=== PATIENT | female | born 1985 | race Caucasian/White ===

== ENCOUNTER 2018-07-02 15:55 | Outpatient (REF) | payer BC, SELFPAY ==
--- NOTE | 2018-07-02 11:15 | PAPFT_PTH ---
PATIENT: Mariely Rizvi LOC: [facility] U#:[id number] AGE/SX: 33/F ROOM: RE07/02/[address]: Isa Cervantes NP : 1985 BED: DIS: 07/02/2018 SPEC #: [id number] RECD: 07/02/18 18:02 STATUS: MELI PACE #: [id number] NORIS: 07/02/18 11:[address]: Isa Cervantes NP DEPT: [facility] Cytology RECD BY: Karoline Oakes Tissues: 1 - CX/ENDOCX FOR PAP SMEARS Procedures: PAP THIN PREP/UVM Screening HPV DNA PROBE Comments: [id number]
== END 2018-07-02 16:15 ==
LOC: LBN 15:55
PROVIDERS: PCP Nurse Practitioner Family; Visit Provider Nurse Practitioner Women's Health
DX: Z12.4 Encounter for screening for malignant neoplasm of cervix (principal); Z11.51 Encounter for screening for human papillomavirus (HPV); Z01.419 Encounter for gynecological examination (general) (routine) without abnormal findings
CPT/HCPCS: 88142; 87624

== ENCOUNTER 2018-12-29 02:27 | Outpatient (CLI) | payer BC, SELFPAY ==
--- NOTE | 2018-12-29 09:30 | PFT_ITS ---
PULMONARY FUNCTION TEST REPORT DATE OF SERVICE: December 29, 2018 REQUESTING PROVIDER: Gislee Rosales M.D. Spirometry shows no evidence of obstructive airways disease. No bronchodilator testing was carried out. Lung volumes show no evidence of restriction. Diffusion capacity elevated. Airways resistance normal. IMPRESSION: Isolated, markedly elevated diffusion capacity. This constellation of finding can be seen in asthma; therefore if the diagnosis of asthma is in question, proceeding with methacholine challenge testing may prove to be useful. Clinical correlation therefore recommended. TATO/andrew
== END 2018-12-29 02:47 ==
PROVIDERS: PCP Nurse Practitioner Family; Visit Provider Nurse Practitioner Family
DX: R05 Cough (principal)
CPT/HCPCS: 94150; 94726; 94729; 94010

== ENCOUNTER 2019-03-17 18:08 | Outpatient (REF) | payer BC, SELFPAY | END 2019-03-17 18:28 | LOC: LBN 18:08 | PROVIDERS: PCP Nurse Practitioner Family; Visit Provider Nurse Practitioner Women's Health | DX: R30.0 Dysuria (principal) | CPT/HCPCS: 87086 ==

== ENCOUNTER 2019-04-07 13:01 | Outpatient (REF) | payer BC, SELFPAY | END 2019-04-07 13:21 | LOC: LBN 13:01 | PROVIDERS: PCP Nurse Practitioner Family; Visit Provider Nurse Practitioner Family | DX: R30.0 Dysuria (principal) | CPT/HCPCS: 87086 ==

== ENCOUNTER 2020-08-16 02:44 | Outpatient (CLI) | payer BC, SELFPAY ==
[2020-08-16 13:04] LABS: ALT 27 U/L (14-59); AST 27 U/L (15-37); Albumin 3.8 g/dL (3.4-5.0); Alkaline Phosphatase 59 U/L (46-116); Anion Gap 9.1 mmol/L (3-11); BUN 11 mg/dL (7-18); Bilirubin, Total 0.3 mg/dL (0.2-1.0); CO2 26.9 mmol/L (21.0-32.0); CREATININE 0.95 mg/dL (0.55-1.02); Calcium 8.7 mg/dL (8.5-10.1); Calculated LDL 107 mg/dL (<100); Chloride 104 mmol/L (98-107); Cholesterol 210 mg/dL (<200); Glucose 78 mg/dL (74-106); HDL Cholesterol 56 mg/dL (40-60); Potassium 3.5 mmol/L (3.5-5.1); Sodium 140 mmol/L (136-145); TSH (W/Ref FT4) 4.48 uIU/mL (0.36-3.74); Total Protein 7.2 g/dL (6.4-8.2); Triglyceride 236 mg/dL (<150)
[2020-08-16 14:02] LABS: FREE T4 0.95 ng/dL (0.76-1.46)
== END 2020-08-16 03:04 ==
PROVIDERS: PCP Nurse Practitioner Family; Visit Provider Nurse Practitioner Women's Health
DX: Z00.00 Encounter for general adult medical examination without abnormal findings (principal); Z13.220 Encounter for screening for lipoid disorders; Z13.29 Encounter for screening for other suspected endocrine disorder
CPT/HCPCS: 36415; 80053; 80061; 84439; 84443

== ENCOUNTER 2020-08-27 02:25 | Outpatient (CLI) | payer BC, SELFPAY ==
[2020-08-27 13:06] LABS: TSH (W/Ref FT4) 5.14 uIU/mL (0.36-3.74)
[2020-08-27 13:22] LABS: FREE T4 0.95 ng/dL (0.76-1.46)
== END 2020-08-27 02:45 ==
PROVIDERS: PCP Nurse Practitioner Family; Visit Provider Nurse Practitioner Women's Health
DX: R94.6 Abnormal results of thyroid function studies (principal); R79.89 Other specified abnormal findings of blood chemistry
CPT/HCPCS: 36415; 84439; 84443

== ENCOUNTER 2020-09-07 03:44 | Outpatient (CLI) | payer BC, SELFPAY ==
--- NOTE | 2020-09-07 06:30 | DI.RAD_ITS ---
EXAM: XR LUMBAR SPINE COMPLETE CLINICAL HISTORY: Left sided low back pain x 2yrs,chronic g89.29,m54.5. TECHNIQUE: 2D digital imaging was performed. COMPARISON: No exams were available for comparison FINDINGS: There are 5 lumbar type vertebral bodies. There is normal alignment. No spondylolysis or spondyloli sthesis. At L5-S1, there is disc space narrowing, small osteophytes and endplate sclerosis. The dis c heights vertebral bodies and posterior elements are otherwise well maintained. No acute fracture o r subluxation. The soft tissues are unremarkable. IMPRESSION: Mild degenerative changes at the L5-S1 disc level. DATA REPOSITORY: RADIATION DOSE DELIVERED:
--- NOTE | 2020-09-07 06:30 | DI.US_ITS ---
EXAM: US THYROID CLINICAL HISTORY: Elevated TSH, ?thyroid enlargement,r79.89. TECHNIQUE: Ultrasound thyroid performed using standard protocol. COMPARISON: No exams were available for comparison FINDINGS: ISTHMUS: 3 mm RIGHT LOBE: Size: 4.3 x 1.4 x 1.3 cm Echogenicity: Normal. Vascularity: Normal. Nodules: There are few small simple less than 3 mm cysts in the right lobe. These would be consisten t with TI-RADS 1 nodules. No suspicious nodules. LEFT LOBE: Size: 5.1 x 1.2 x 1.0 cm Echogenicity: Normal. Vascularity: Normal. Nodules: There are few small simple cysts which are less than 3 mm in the left lobe. These would be consistent with TI-RADS 1 nodules. No suspicious nodules. OTHER FINDINGS: None. IMPRESSION: No suspicious thyroid nodules. DATA REPOSITORY:
== END 2020-09-07 04:04 ==
PROVIDERS: PCP Nurse Practitioner Family; Visit Provider Nurse Practitioner Family
DX: R94.6 Abnormal results of thyroid function studies (principal); M47.817 Spondylosis without myelopathy or radiculopathy, lumbosacral region; G89.29 Other chronic pain; M54.5 Low back pain
CPT/HCPCS: 72110; 76536

== ENCOUNTER 2020-09-21 02:14 | Outpatient (CLI) | payer BC, SELFPAY ==
--- NOTE | 2020-09-21 09:35 | DI.MRI_ITS ---
EXAM: MR LUMBAR SPINE WO CLINICAL HISTORY: Assess for herniated disc,LUMBAR BACK PAIN,RADICULOPATHY,M54.5,M54.16. TECHNIQUE: Multiplanar multisequence MRI of the Lumbar spine was performed. COMPARISON: CR XR LUMBAR SPINE COMPLETE from 09/07/2020 FINDINGS: Bones: The last intervertebral disc space is designated the L5/S1 level for the numbering purpose of this examination. The vertebral body heights are well maintained. Alignment is satisfactory. There are degenerative endplate signal changes at L5-S1. There is loss of signal in the intervertebral disc at L5-S1. Cord: The conus tip ends at the T12 level. It is of normal size and signal intensity. T12-L1: There is a mild diffuse disc bulge. No central spinal canal or neural foraminal stenosis. L1-2: No disc herniations or bulges are present. No central spinal canal or neural foraminal stenosis . L2-3: No disc herniations or bulges are present. No central spinal canal or neural foraminal stenosis . L3-4: No disc herniations or bulges are present. No central spinal canal or neural foraminal stenosis . L4-5: There is a mild diffuse disc bulge. No central spinal canal or neural foraminal stenosis. L5-S1: No disc herniations or bulges are present. There is no significant central spinal canal stenos is. There is however mild bilateral neural foraminal stenosis. Soft tissues: The visualized SI joints and sacrum are well maintained. The paraspinal soft tissues ar e unremarkable. IMPRESSION: Degenerative changes at L5-S1 resulting in mild bilateral neural foraminal stenosis. DATA REPOSITORY:
== END 2020-09-21 02:15 ==
LOC: DI 02:15
PROVIDERS: PCP Nurse Practitioner Family; Visit Provider Nurse Practitioner Family
DX: M47.817 Spondylosis without myelopathy or radiculopathy, lumbosacral region (principal); M48.07 Spinal stenosis, lumbosacral region
CPT/HCPCS: 72148

== ENCOUNTER 2021-08-20 20:02 | Outpatient (REF) | payer BC, SELFPAY ==
[2021-08-21 15:47] LABS: Chlamydia Result Negative (Negative); GC Result Negative (Negative)
== END 2021-08-20 20:03 | disposition home or self-care (01) ==
LOC: LBN 20:02
PROVIDERS: PCP Nurse Practitioner Family; Visit Provider Nurse Practitioner Women's Health
DX: Z11.3 Encounter for screening for infections with a predominantly sexual mode of transmission (principal)
CPT/HCPCS: 87491; 87591

== ENCOUNTER 2021-08-28 03:25 | Outpatient (CLI) | payer BC, SELFPAY ==
[2021-08-28 14:23] LABS: FREE T4 1.07 ng/dL (0.76-1.46); TSH 3.21 uIU/mL (0.36-3.74)
[2021-08-28 23:09] LABS: Thyroglobulin Antibody <15 U/mL (<=60); Thyroperoxidase Antibody 38 U/mL (<=60)
== END 2021-08-28 03:26 | disposition home or self-care (01) ==
LOC: LBO 03:25
PROVIDERS: PCP Nurse Practitioner Family; Visit Provider Nurse Practitioner Family
DX: R79.89 Other specified abnormal findings of blood chemistry (principal)
CPT/HCPCS: 36415; 86376; 84439; 84443

== ENCOUNTER 2022-09-10 15:44 | Outpatient (REF) | payer BC, SELFPAY ==
--- NOTE | 2022-09-10 15:15 | PAPFT_PTH ---
PATIENT: Mariely Rizvi LOC: [facility] U#:[id number] AGE/SX: 37/F ROOM: RE09/10/[address]: Isa Cervantes NP : 1985 BED: DIS: 09/10/2022 SPEC #: [id number] RECD: 09/10/22 18:22 STATUS: MELI PACE #: [id number] NORIS: 09/10/22 15:[address]: Isa Cervantes NP DEPT: [facility] Cytology RECD BY: Karoline Oakes ENTERED: 09/10/22 18:23 SP TYPE: PAPFT OTHR DR: Gisele Rosales, REGISTERED PHARMACY TECHNICIAN Tissues: 1 - CX/ENDOCX FOR PAP SMEARS Procedures: PAP THIN PREP/UVM Screening HPV DNA PROBE Comments: [id number]
== END 2022-09-10 15:45 | disposition home or self-care (01) ==
LOC: LBN 15:44
PROVIDERS: PCP Nurse Practitioner Family; Visit Provider Nurse Practitioner Women's Health
DX: Z12.4 Encounter for screening for malignant neoplasm of cervix (principal); Z11.51 Encounter for screening for human papillomavirus (HPV)
CPT/HCPCS: 88142; 87624

== ENCOUNTER 2023-01-27 01:13 | Outpatient (CLI) | payer BC, SELFPAY ==
--- NOTE | 2023-01-27 12:15 | DI.MAMMO_ITS ---
Exam(s) MAMMO SCREENING EXAM: MAMMO SCREENING CLINICAL HISTORY: screening. TECHNIQUE: Bilateral full field digital CC and MLO mammographic images were obtained with 3D tomosyn thesis and utilizing computer aided detection (CAD). COMPARISON: None. Baseline mammogram on 38-year-old patient FINDINGS: Glandular tissue pattern is moderately dense. No obvious findings in the right breast. In the left breast there is an asymmetric density-possible nodule seen on the CC view 3 cm in from th e nipple measuring approximately 7 x 6 mm. Spot compression view recommended There few benign-appearing microcalcifications. No malignant-appearing microcalcification groups There is no significant architectural distortion nor skin thickening-retraction. IMPRESSION: Dense bilateral fibroglandular tissue. Asymmetric density-possible nodule in left breast. Spot comp ression CC view and ultrasound recommended. BI-RADS Category 0 - Assessment Incomplete: Need additional imaging evaluation Breast Density - Category C - Heterogeneously dense Breast density Category C or D implies that the patient has dense breast tissue. Dense breast tissue can make it harder to find cancer on a mammogram. Dense breast tissue is also associated with an incr eased risk of breast cancer. This information about the result of the mammogram report was provided to the patient to raise their awareness. Use this report when you speak with the patient about their risks for breast cancer, which includes their family history. At that time, you may recommend additional screening tests (Ultrasoun d or MRI) as these tests may add significant information. A negative radiographic report should not delay biopsy if a dominant or clinically suspicious mass is present. Up to ten percent of cancers are not identified on mammography. A negative report may reinforce clinical impression. Adenosis and dense breasts may obscure an underlying neoplasm. False positive reports average 6 to 10%. Patient will receive a letter notifying them of these results.
== END 2023-01-27 01:33 ==
LOC: DI 01:13
PROVIDERS: PCP Nurse Practitioner Family; Visit Provider Nurse Practitioner Women's Health
DX: Z12.31 Encounter for screening mammogram for malignant neoplasm of breast (principal)
CPT/HCPCS: 77063; 77067

== ENCOUNTER 2023-02-03 02:10 | Outpatient (CLI) | payer BC, SELFPAY ==
--- NOTE | 2023-02-03 | DI.US_ITS ---
Exam(s) MG MAMMO SCREEN CALL BACK UNI US BREAST LT COMPLETE EXAM: MG MAMMO SCREEN CALL BACK UNI and U/S breast LT complete CLINICAL HISTORY: F/U MAMMO, ASYMMETRIC DENSITY POSSIBLE NODULE LT BREAST. TECHNIQUE: Craniocaudal and mediolateral oblique Full Field Digital Mammography views of the left br east with Computer Aided Diagnosis followed by Tomosynthesis and left breast ultrasound. COMPARISON: Comparison is made with baseline mammogram. FINDINGS: Mammography/Tomosynthesis: Masses/Architectural Distortion: Additional views of the left breast show no discrete persistent mass . No areas of architectural distortion are seen. Microcalcifictions: No suspicious pleomorphic-type are seen. Skin Thickening/Nipple Retraction: None. Complete left breast US: Echotexture: Normal appearance of the glandular tissue. Shadowing: No suspicious foci. Cyst: None. Solid lesions: None seen. Ductal dilation: None. IMPRESSION: 1. No evidence of malignancy is noted. 2. Unless there is more urgent need, follow-up screening mammography is recommended, as per [place] [employer] guidelines. 3. The findings were discussed with the patient on the date of the examination. BI-RADS Category 1 - Negative Breast Density - Category C - Heterogeneously dense Breast density Category C or D implies that the patient has dense breast tissue. Dense breast tissue can make it harder to find cancer on a mammogram. Dense breast tissue is also associated with an incr eased risk of breast cancer. This information about the result of the mammogram report was provided to the patient to raise their awareness. Use this report when you speak with the patient about their risks for breast cancer, which includes their family history. At that time, you may recommend additional screening tests (Ultrasoun d or MRI) as these tests may add significant information. A negative radiographic report should not delay biopsy if a dominant or clinically suspicious mass is present. Up to ten percent of cancers are not identified on mammography. A negative report may reinforce clinical impression. Adenosis and dense breasts may obscure an underlying neoplasm. False positive reports average 6 to 10%. Patient will receive a letter notifying them of these results.
== END 2023-02-03 02:30 ==
LOC: DI 02:11
PROVIDERS: PCP Nurse Practitioner Family; Visit Provider Nurse Practitioner Family
DX: R92.8 Other abnormal and inconclusive findings on diagnostic imaging of breast (principal)
CPT/HCPCS: 76642; 77063; 77067

== ENCOUNTER 2023-07-15 13:18 | Outpatient (CLI) | payer BC, SELFPAY ==
--- NOTE | 2023-07-15 10:30 | DI.RAD_ITS ---
Exam(s) XR ELBOW RT LIMITED EXAM: XR ELBOW RT LIMITED CLINICAL HISTORY: RIGHT ELBOW PAIN. TECHNIQUE: 2D digital imaging was performed of the left elbow. Two images were obtained. AP and la teral views were obtained. COMPARISON: No exams were available for comparison FINDINGS: BONES: No acute fracture is present. No bony destructive lesion is seen. JOINTS: The elbow is normally aligned. No joint effusion is seen. SOFT TISSUE: Normal. IMPRESSION: Unremarkable radiographs of the right elbow. DATA REPOSITORY: RADIATION DOSE DELIVERED:
== END 2023-07-15 13:19 | disposition home or self-care (01) ==
LOC: DIORS 13:18
PROVIDERS: PCP Nurse Practitioner Family; Visit Provider Student in an Organized Health Care Education/Training Program
DX: M77.01 Medial epicondylitis, right elbow (principal)
CPT/HCPCS: 73070

== ENCOUNTER 2023-10-18 14:48 | Emergency (ER) | payer BC, SELFPAY ==
[2023-10-18 14:51] VITALS: BP 178/106; PULSE 78; RESP 18; TEMP 36.8; O2SAT 99
[2023-10-18 14:59] VITALS: BP 143/90; PULSE 72
[2023-10-18 15:00] VITALS: BP 151/92; PULSE 79
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
[2023-10-18 16:16] VITALS: BP 148/92; PULSE 68; RESP 18; O2SAT 100
== END 2023-10-18 16:16 | disposition home or self-care (01) ==
PROVIDERS: Emergency Provider Emergency Medicine; PCP Nurse Practitioner Family
DX: T22.232A Burn of second degree of left upper arm, initial encounter (principal); T20.20XA Burn of second degree of head, face, and neck, unspecified site, initial encounter; T20.27XA Burn of second degree of neck, initial encounter; X12.XXXA Contact with other hot fluids, initial encounter; Y93.G3 Activity, cooking and baking
CPT/HCPCS: 99283

== ENCOUNTER → 2024-02-05 00:06 | Outpatient (CLI) | payer BC, SELFPAY ==
--- NOTE | 2024-02-05 12:00 | DI.MAMMO_ITS ---
Exam(s) MAMMO SCREENING EXAM: MAMMO SCREENING CLINICAL HISTORY: screening TECHNIQUE: Mammograms were interpreted according to the usual protocol including computer analysis w [id number] CAD system, tomosynthesis and C-view imaging. COMPARISON: 2022 FINDINGS: The breasts are composed of heterogeneously dense fibroglandular densities, Breast Density category C . No suspicious masses or suspicious microcalcifications are seen. No skin thickening or abnormal axillary lymph nodes are seen. There has been no significant change from prior exams. IMPRESSION: BI-RADS Category 1, Negative mammogram. Yearly screening mammography is recommended. Breast Density Category C, heterogeneously Dense. The mammogram demonstrates the patient's breast tissue is dense. Dense breast tissue is very common a nd is not abnormal but dense breast tissue can make it harder to find cancer on a mammogram. Also, de nse breast tissue may increase breast cancer risk. This information about the result of the mammogram report was provided to the patient to raise their awareness. Use this report when you speak with the patient about their risks for breast cancer, which includes their family history. At that time, you may recommend additional screening tests (Ultrasound or MRI) as they might be useful based on their r isk. A negative radiographic report should not delay biopsy if a dominant or clinically suspicious mass is present. Up to ten percent of cancers are not identified on mammography. A negative report may reinforce clinical impression. Adenosis and dense breasts may obscure an underlying neoplasm. False positive reports average 6 to 10%.
== END ==
PROVIDERS: PCP Nurse Practitioner Family; Visit Provider Nurse Practitioner Women's Health
DX: Z12.31 Encounter for screening mammogram for malignant neoplasm of breast (principal); R92.333 Mammographic heterogeneous density, bilateral breasts
CPT/HCPCS: 77063; 77067

== ENCOUNTER 2024-09-08 03:53 | Outpatient (CLI) | payer OTHER, SELFPAY ==
[2024-09-08 07:26] LABS: HCT 43.2 % (36.0-46.0); MCH 29.7 pg (27.0-33.0); MCHC 32.4 % (32.0-36.0); MCV 92 fL (80-95); MPV 9.9 fL (8.0-11.0); Platelet Count 320 10^3/uL (130-400); RBC 4.71 10^6/uL (3.93-5.22); RDW-SD 40.4 fL; WBC 5.51 10^3/uL (4.4-10.8)
[2024-09-08 07:49] LABS: ALT 21 U/L (14-59); AST 21 U/L (15-37); Albumin 3.9 g/dL (3.4-5.0); Alkaline Phosphatase 92 U/L (46-116); Anion Gap 9.3 mmol/L (3-11); BUN 13 mg/dL (7-18); Bilirubin, Total 0.56 mg/dL (0.2-1.0); CO2 26.7 mmol/L (21.0-32.0); CREATININE 0.9 mg/dL (0.55-1.02); Calcium 8.9 mg/dL (8.5-10.1); Calculated LDL 120 mg/dL (<100); Chloride 109 mmol/L (98-107); Cholesterol 189 mg/dL (<200); Estimated GFR 82.37 (mL/min/1.73m2); Glucose 91 mg/dL (74-106); HDL Cholesterol 63 mg/dL (40-60); Potassium 4.2 mmol/L (3.5-5.1); Sodium 145 mmol/L (136-145); Total Protein 7.2 g/dL (6.4-8.2); Triglyceride 32 mg/dL (<150)
[2024-09-08 07:55] LABS: Hemoglobin A1C 5.2 % (<5.7)
[2024-09-08 19:39] LABS: HBs Antibody, Quant 572.9 mIU/mL (See Note); Hep B Surface Ab Positive (See Note); Hepatitis B Core Antibody Negative (Negative); Hepatitis B Surface Antigen Negative (Negative)
[2024-09-08 19:46] LABS: HIV-1/2 Ag & Ab Screen Negative (Negative)
[2024-09-08 19:50] LABS: Hepatitis C Ab w Rflx HCV PCR Negative (Negative)
== END 2024-09-08 03:54 | disposition home or self-care (01) ==
LOC: LBO 03:53
PROVIDERS: PCP Nurse Practitioner Family; Visit Provider Nurse Practitioner Family
DX: Z00.00 Encounter for general adult medical examination without abnormal findings (principal); Z11.59 Encounter for screening for other viral diseases; Z11.4 Encounter for screening for human immunodeficiency virus [HIV]
CPT/HCPCS: 36415; 80053; 80061; 85027; 86704; 86706; 86803; 87340; 87389; 83036

== ENCOUNTER 2025-03-01 01:58 | Outpatient (CLI) | payer OTHER, SELFPAY ==
--- NOTE | 2025-03-01 07:00 | DI.MAMMO_ITS ---
Exam(s) MAMMO SCREENING EXAM: MAMMO SCREENING CLINICAL HISTORY: screening,Z12.39 TECHNIQUE: Bilateral full field digital CC and MLO mammographic images were obtained with 3D tomosynthesis and utilizing computer aided detection (CAD). COMPARISON: Comparison is made with prior examinations. FINDINGS: Masses/Architectural Distortion: There is a question of a new 5 6 mm nodule in the retroareolar region of the right breast on the craniocaudad view. There are no areas of architectural distortion. Microcalcifications: No suspicious pleomorphic-type are seen. Skin Thickening/Nipple Retraction: None. IMPRESSION: 1. Apparent new nodule in the retroareolar region of the right breast on the craniocaudad view. 2. A spot compression views requested for further evaluation. Ultrasound may be indicated at that time. BI-RADS Category 0 - Incomplete: Need additional imaging evaluation Breast Density - Category C - The breast are heterogeneously dense, which may obscure small masses. Breast density Category C or D implies that the patient has dense breast tissue. Dense breast tissue can make it harder to find cancer on a mammogram. Dense breast tissue is also associated with an increased risk of breast cancer. This information about the result of the mammogram report was provided to the patient to raise their awareness. Use this report when you speak with the patient about their risks for breast cancer, which includes their family history. At that time, you may recommend additional screening tests (Ultrasound or MRI) as these tests may add significant information. A negative radiographic report should not delay biopsy if a dominant or clinically suspicious mass is present. Up to ten percent of cancers are not identified on mammography. A negative report may reinforce clinical impression. Adenosis and dense breasts may obscure an underlying neoplasm. False positive reports average 6 to 10%. Patient will receive a letter notifying them of these results.
== END 2025-03-01 02:18 ==
LOC: DI 01:58
PROVIDERS: PCP Nurse Practitioner Family; Visit Provider Nurse Practitioner Family
DX: Z12.31 Encounter for screening mammogram for malignant neoplasm of breast (principal); R92.333 Mammographic heterogeneous density, bilateral breasts
CPT/HCPCS: 77063; 77067

== ENCOUNTER 2025-03-03 00:21 | Outpatient (CLI) | payer OTHER, SELFPAY ==
--- NOTE | 2025-03-03 | DI.MAMMO_ITS ---
Exam(s) MG MAMMO SCREEN CALL BACK UNI US BREAST RT COMPLETE EXAM: MG MAMMO SCREEN CALL BACK UNI-RIGHT AND COMPLETE RIGHT BREAST ULTRASOUND CLINICAL HISTORY: F/U MAMMO, APPARENT NEW NODULE RETROAREOLAR AREA RT BREAST ON CC VIEW. TECHNIQUE: Unilateral RIGHT BREAST spot mammographic images obtained with 3D tomosynthesisand utilizing computer aided detection (CAD). . Complete RIGHT breast Ultrasound was also performed, including all 4 quadrants, the retroareolar region, and the ipsilateral axilla. COMPARISON: Prior mammograms were reviewed. This additional imaging was performed due to findings described on the recent screening mammogram of 03/01/2025. FINDINGS: DIAGNOSTIC MAMMOGRAM: Additional mammographic views performed todayis somewhat equivocal. We proceeded with ultrasound COMPLETE RIGHT BREAST ULTRASOUND: Ultrasound performed today reveals a possible solitary finding at the 11-12 o'clock position. This is a wider than taller 3 x 2 mm nodular density. Upon real-time imaging it is somewhat difficult to determine if this is a true nodule or just part of her breast pattern. Nevertheless, this has benign appearance on ultrasound. There are no other focal findings in all 4 quadrants.. Scanning of the ipsilateral axilla reveals no significant adenopathy. IMPRESSION: 1. Benign-appearing finding at 11 o'clock position of the right breast which may correspond to the finding on the mammogram. 2. Appropriate follow-up, as discussed by myself with the patient today, is repeat right breast imaging in 6 months, this to include repeat right breast mammogram and ultrasound. The patient was informed of these findings and recommendations by myself prior to leaving the department today. BI-RADS Category 3 - 6 month - Probably Benign Finding: Recommend follow-up mammography in 6 months Breast Density - Category C - The breast are heterogeneously dense, which may obscure small masses. Breast density Category C or D implies that the patient has dense breast tissue. Dense breast tissue can make it harder to find cancer on a mammogram. Dense breast tissue is also associated with an increased risk of breast cancer. This information about the result of the mammogram report was provided to the patient to raise their awareness. Use this report when you speak with the patient about their risks for breast cancer, which includes their family history. At that time, you may recommend additional screening tests (Ultrasound or MRI) as these tests may add significant information. A negative radiographic report should not delay biopsy if a dominant or clinically suspicious mass is present. Up to ten percent of cancers are not identified on mammography. A negative report may reinforce clinical impression. Adenosis and dense breasts may obscure an underlying neoplasm. False positive reports average 6 to 10%. Patient will receive a letter notifying them of these results.
== END 2025-03-03 00:41 ==
LOC: DI 00:21
PROVIDERS: PCP Nurse Practitioner Family; Visit Provider Nurse Practitioner Family
DX: Z12.31 Encounter for screening mammogram for malignant neoplasm of breast (principal); R92.333 Mammographic heterogeneous density, bilateral breasts
CPT/HCPCS: 76642; 77063; 77067